=== PATIENT | male | born 1970 | race Caucasian/White ===

== ENCOUNTER 2017-08-24 00:32 | Emergency (ER) | payer OTHER ==
[2017-08-24 00:38] VITALS: BP 123/68; PULSE 77; TEMP 97.7; BMI 25.7
--- NOTE | 2017-08-24 01:07 | PDOC ---
History of Present Illness - General Chief Complaint: Respiratory Stated Complaint: COLD SYMPTOMS,COUGH/RESPIRATORY Time Seen by Provider: 08/24/17 00:40 History Source: Patient - History of Present Illness Initial Comments: 08/24/17 02:12 47-year-old male with a history of asthma and renal colic presents to the emergency department complaining of a greenish productive cough 4 days with rhinorrhea and nasal congestion but without headaches, dizziness, lightheadedness, rhinorrhea, nasal congestion, chest pain, shortness of breath, abdominal pains, urinary symptoms. Past History - Past Medical History Allergies/Adverse Reactions: Allergies Allergy/AdvReac Type Severity Reaction Status Date / Time No Known Allergies Allergy Verified 08/24/17 00:37 Home Medications: Ambulatory Orders Cyclobenzaprine HCl [Flexeril -] 10 mg PO TID #21 tablet 07/13/16 Naproxen [Naprosyn -] 500 mg PO BID PRN #15 tablet 07/13/16 Asthma: Yes Kidney Stones: Yes - Suicide/Smoking/Psychosocial Hx Smoking Status: Yes Smoking History: Current every day smoker Have you smoked in the past 12 months: Yes Number of Cigarettes Smoked Daily: 3 Cigars Per Day: 0 Information on smoking cessation initiated: No Hx Alcohol Use: Yes (WEEKENDS) Drug/Substance Use Hx: No Review of Systems - Review of Systems Able to Perform ROS?: Yes Comments:: 08/24/17 01:41 CONSTITUTIONAL: Absent: fever, chills, diaphoresis, generalized weakness, malaise, loss of appetite HEENT: Absent: rhinorrhea, nasal congestion, throat pain, throat swelling, difficulty swallowing, mouth swelling, ear pain, eye pain, visual Changes CARDIOVASCULAR: Absent: chest pain, loss of consciousness, palpitations, irregular heart rate, peripheral edema RESPIRATORY: Absent: cough, shortness of breath, dyspnea with exertion, orthopnea, wheezing, stridor, hemoptysis GASTROINTESTINAL: Absent: abdominal pain, abdominal distension, nausea, vomiting, diarrhea, constipation, melena, hematochezia GENITOURINARY: Absent: dysuria, frequency, urgency, hesitancy, hematuria, flank pain, genital pain MUSCULOSKELETAL: Absent: myalgia, arthralgia, joint swelling SKIN: Absent: rash, itching, pallor HEMATOLOGIC/IMMUNOLOGIC: Absent: easy bleeding, easy bruising, lymphadenopathy, frequent infections ENDOCRINE: Absent: unexplained weight gain, unexplained weight loss, heat intolerance, cold intolerance NEUROLOGIC: Absent: headache, focal weakness or paresthesias, dizziness, unsteady gait, seizure, mental status changes, bladder or bowel incontinence PSYCHIATRIC: Absent: anxiety, depression, suicidal or homicidal ideation, hallucinations. Is the patient limited Swiss proficient: No *Physical Exam - Vital Signs Last Vital Signs Temp Pulse Resp BP Pulse Ox 97.7 F 77 18 123/68 99 08/24/17 00:34 08/24/17 00:34 08/24/17 00:34 08/24/17 00:34 08/24/17 00:34 - Physical Exam Comments: 08/24/17 01:41 GENERAL: Well developed, well nourished. Awake and alert. No acute distress. HEENT: Normocephalic, atraumatic. PERRLA, EOMI. No conjunctival pallor. Sclera are non- icteric. Moist mucous membranes. Oropharynx is clear. NECK: Supple. Full ROM. No JVD. Carotid pulses 2+ and symmetric, without bruits. No thyromegaly. No lymphadenopathy. CARDIOVASCULAR: Regular rate and rhythm. No murmurs, rubs, or gallops. Distal pulses are 2+ and symmetric. PULMONARY: No evidence of respiratory distress. Lungs clear to auscultation bilaterally. No wheezing, rales or rhonchi. ABDOMINAL: Soft. Non-tender. Non-distended. No rebound or guarding. No organomegaly. Normoactive bowel sounds. MUSCULOSKELETAL Normal range of motion at all joints. No bony deformities or tenderness. No CVA tenderness. EXTREMITIES: No cyanosis. No clubbing. No edema. No calf tenderness. SKIN: Warm and dry. Normal capillary refill. No rashes. No jaundice. NEUROLOGICAL: Alert, awake, appropriate. Cranial nerves 2-12 intact. No deficits to light touch and temperature in face, upper extremities and lower extremities. No motor deficits in the in face, upper extremities and lower extremities. Normoreflexic in the upper and lower extremities. Normal speech. Toes are down- going bilaterally. Gait is normal without ataxia. PSYCHIATRIC: Cooperative. Good eye contact. Appropriate mood and affect. *DC/Admit/Observation/Transfer Diagnosis at time of Disposition: Cough - Discharge Dispostion Disposition: HOME Condition at time of disposition: Stable Admit: No - Patient Instructions Printed Discharge Instructions: DI for Acute Bronchitis Additional Instructions: Medrol Dose pack Over the counter supposrtive care Return to the ER for severe/persistent/worsening symptoms
[2017-08-24] MEDS ORDERED: DEXAMETHASONE SOD PHOSPHATE 10 MG/1 ML VIAL IM ONE (02:19)
[2017-08-24] MEDS ORDERED: predniSONE 20 MG TABLET (UD) PO ONE (02:20)
[2017-08-24] MEDS ORDERED: predniSONE 20 MG TABLET (UD) ONE (02:23)
== END 2017-08-24 02:49 | disposition home or self-care (01) ==
LOC: JER 00:32
DX: J20.9 Acute bronchitis, unspecified (principal)
CPT/HCPCS: 71020-TC; 99281-25

== ENCOUNTER 2018-05-31 21:31 | Emergency (ER) | payer OTHER ==
[2018-05-31 21:50] VITALS: BP 115/60; PULSE 95; TEMP 97.5; BMI 29.2
[2018-05-31] MEDS ORDERED: IBUPROFEN 400 MG TABLET (FP) PO ONE ×2 (22:10)
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
== END 2018-05-31 22:49 | disposition home or self-care (01) ==
LOC: JERFT 21:31
DX: L55.0 Sunburn of first degree (principal); J45.909 Unspecified asthma, uncomplicated; F17.210 Nicotine dependence, cigarettes, uncomplicated
CPT/HCPCS: 99281-25

== ENCOUNTER 2019-11-21 19:51 | Emergency (ER) | payer OTHER ==
[2019-11-21 20:18] VITALS: BP 114/70; PULSE 96; TEMP 98.3; BMI 25.4
[2019-11-21] MEDS ORDERED: diazePAM 5 MG TABLET PO ONE (22:11)
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
[2019-11-21] MEDS ORDERED: diazePAM 5 MG TABLET ONE (22:15)
== END 2019-11-21 22:20 | disposition home or self-care (01) ==
LOC: JERFT 19:51
DX: M62.830 Muscle spasm of back (principal); F17.210 Nicotine dependence, cigarettes, uncomplicated
CPT/HCPCS: 99281-25

== ENCOUNTER 2019-11-22 14:37 | Emergency (ER) | payer SELFPAY ==
[2019-11-22] MEDS ORDERED: KETOROLAC TROMETHAMINE 60 MG/2 ML VIAL IM ONE (14:41)
--- NOTE | 2019-11-22 14:41 | PDOC ---
Rapid Medical Evaluation Time Seen by Provider: 11/22/19 14:40 Medical Evaluation: Allergies Allergy/AdvReac Type Severity Reaction Status Date / Time No Known Allergies Allergy Verified 08/24/17 00:37 11/22/19 14:40 CC: lower back pain PE: lumbar muscle spasm present Orders: toradol Patient will proceed to ED for further evaluation. Discharge Disposition - Diagnosis Low back pain - Referrals - Patient Instructions - Post Discharge Activity
[2019-11-22 14:42] VITALS: BP 110/62; PULSE 70; TEMP 98; BMI 25.4
[2019-11-22] MEDS ORDERED: KETOROLAC TROMETHAMINE 60 MG/2 ML VIAL ONE (14:47)
[2019-11-22] MEDS ORDERED: CYCLOBENZAPRINE HCL 10 MG TABLET (FP) PO ONE (15:11)
--- NOTE | 2019-11-22 15:14 | PDOC ---
History of Present Illness - General Chief Complaint: Back Pain Stated Complaint: BACK PAIN Time Seen by Provider: 11/22/19 14:40 - History of Present Illness Initial Comments: 11/22/19 15:11 49-year-old male presents for evaluation of lower back pain. Seen yesterday he returns to the emergency room with re-exacerbation of symptoms without radicular or systemic symptoms no loss of bowel or bladder function no saddle paresthesias. He is requesting a shot of Toradol which she was not given yesterday. I explained to him he was taking anti-inflammatories yesterday and this is why he was not given Toradol. He assures me that he did not take any anti-inflammatory medications today. Past History - Past Medical History Allergies/Adverse Reactions: Allergies Allergy/AdvReac Type Severity Reaction Status Date / Time No Known Allergies Allergy Verified 11/22/19 14:42 Home Medications: Ambulatory Orders Silver Sulfadiazine 1% Top Cr [Silvadene -] 1 applic TP BID #1 jar 05/31/18 Silver Sulfadiazine 1% Top Cr [Silvadene -] 1 applic TP BID #1 jar 05/31/18 Albuterol Sulfate Inhaler - [Ventolin HFA Inhaler -] 1 puff IH Q6H #90 inhaler 11/21/19 Methocarbamol [Robaxin -] 1,500 mg PO Q8H PRN #30 tablet 11/21/19 Asthma: Yes CVA: No COPD: No Kidney Stones: Yes - Psycho Social/Smoking Cessation Hx Smoking Status: Yes Smoking History: Never smoked Have you smoked in the past 12 months: Yes Number of Cigarettes Smoked Daily: 4 Cigars Per Day: 0 Hx Alcohol Use: No Drug/Substance Use Hx: No Substance Use Type: None Review of Systems - Review of Systems Musculoskeletal: Yes: Back Pain *Physical Exam - Vital Signs Last Vital Signs Temp Pulse Resp BP Pulse Ox 98 F 70 18 110/62 99 11/22/19 14:39 11/22/19 14:39 11/22/19 14:39 11/22/19 14:39 11/22/19 14:39 - Physical Exam 11/22/19 15:12 Lumbar spine skin color and temperature normal range of motion is limited. No midline tenderness. Mild right and left paralumbar musculature spasm and tenderness bilateral thighs and calves soft and nontender neurovascular intact no gross sensorimotor deficits ED Treatment Course - RADIOLOGY Radiology Studies Ordered: Category Date Time Status SPINE-LUMBAR SACRAL [RAD] Stat Radiology 11/22/19 14:44 Taken - Medications Given in the ED: ED Medications Discontinued Medications Generic Name Dose Route Start Last Admin Trade Name Ese PRN Reason Stop Dose Admin Ketorolac Tromethamine 60 mg 11/22/19 14:41 11/22/19 14:53 Toradol Injection - IM 11/22/19 14:42 60 mg ONCE ONE Administration Medical Decision Making - Medical Decision Making 11/22/19 15:13 X-rays of the lumbar sacral spine show straightening of the lumbar lordosis no evidence of fracture trauma mild arthritic changes loss of disc height between L5 and S1 Toradol and Flexeril given in the emergency room follow-up with neurosurgery Discharge - Discharge Information Problems reviewed: Yes Clinical Impression/Diagnosis: Low back pain Condition: Stable Disposition: HOME - Admission No - Follow up/Referral Referrals: Kevin Sadler MD, [facility] [Staff Physician] - - Patient Discharge Instructions Additional Instructions: Continue your medication at home as directed. Do not take any anti- inflammatories for the rest of the day. You were given a long-acting injection of an anti-inflammatory in the emergency room. Return to the emergency room for worsening symptoms and without fail follow-up with neurosurgery in 2 to 3 days for further evaluation and treatment options. Start the anti-inflammatory tomorrow evening at about 6 PM - Post Discharge Activity
[2019-11-22] MEDS ORDERED: CYCLOBENZAPRINE HCL 10 MG TABLET (FP) ONE (15:15)
== END 2019-11-22 15:30 | disposition home or self-care (01) ==
LOC: JERFT 14:37
PROC: 3E0233Z Introduction of Anti-inflammatory into Muscle, Percutaneous Approach (ICD-10-PCS; principal; 2019-11-22)
DX: M62.830 Muscle spasm of back (principal)
CPT/HCPCS: 72100-TC-FY; 99282-25

== ENCOUNTER 2021-08-16 09:21 | Emergency (ER) | payer OTHER ==
[2021-08-16 09:28] VITALS: BP 127/89; TEMP 97.9; BMI 25.7
[2021-08-16] MEDS ORDERED: CYCLOBENZAPRINE HCL 10 MG TABLET (FP) PO ONE (09:55)
[2021-08-16] MEDS ORDERED: CYCLOBENZAPRINE HCL 10 MG TABLET (FP) ONE (09:57)
[2021-08-16 11:09] VITALS: PULSE 88
== END 2021-08-16 10:12 | disposition home or self-care (01) ==
LOC: JER 09:21
DX: M54.5 Low back pain (principal)
CPT/HCPCS: 99283-25

== ENCOUNTER 2021-09-12 23:21 | Emergency (ER) | payer OTHER ==
[2021-09-12 23:47] VITALS: TEMP 98.2; BMI 25.7
[2021-09-13] MEDS ORDERED: methylPREDNISolone NA SUCC 125 MG/2 ML VIAL IVPUSH ONE (00:38)
[2021-09-13] MEDS ORDERED: ALBUTEROL SO4 2.5/IPRATROPIUM 0.5 INH SOL 3 ML VIAL.NEB. NEB SCH (00:45)
[2021-09-13] MEDS ORDERED: methylPREDNISolone NA SUCC 125 MG/2 ML VIAL ONE (01:16)
[2021-09-13] MEDS ORDERED: ALBUTEROL SO4 2.5/IPRATROPIUM 0.5 INH SOL 3 ML VIAL.NEB. NEB ONE (01:21)
[2021-09-13 01:22] LABS: BASO % 0.5 % (0-2.0); EOS % 2.7 % (0-4.5); HEMATOCRIT 42.7 % (35.4-49); HEMOGLOBIN 14.2 GM/dL (11.7-16.9); LYMPH % 19.1 % (8-40); MCH 29.3 pg (25.7-33.7); MCHC 33.2 g/dl (32.0-35.9); MEAN CELL VOLUME 88.3 fl (80-96); MEAN PLT VOLUME 8.7 fl (7.5-11.1); MONO % 10.5 % (3.8-10.2); NEUT % 67.2 % (42.8-82.8); PLATELET COUNT 162 10^3/uL (134-434); RBC 4.84 M/mm3 (4.00-5.60); RDW 13.5 % (11.9-15.9); WHITE BLOOD COUNT 6.7 K/mm3 (4.0-10.0)
[2021-09-13 01:48] LABS: CHLORIDE 106 mmol/L (98-107); SODIUM 141 mmol/L (136-145)
[2021-09-13 01:50] LABS: CALCIUM 8.5 mg/dL (8.5-10.1)
[2021-09-13 01:51] LABS: ALBUMIN 3.2 g/dl (3.4-5.0); ANION GAP 8 MMOL/L (8-16); CO2 27 mmol/L (21-32); GLUCOSE,RANDOM 99 mg/dL (74-106); MAGNESIUM 1.8 mg/dL (1.8-2.4)
[2021-09-13 01:54] LABS: CREATININE 0.9 mg/dL (0.55-1.3); PHOSPHOROUS 3.8 mg/dL (2.5-4.9); SGOT/AST 32 U/L (15-37); SGPT/ALT 38 U/L (13-61)
[2021-09-13 01:56] LABS: BILIRUBIN,TOTAL 0.2 mg/dL (0.2-1)
[2021-09-13 01:57] LABS: ALK PHOS 64 U/L (45-117); TOT PROT 6.7 g/dl (6.4-8.2)
[2021-09-13] MEDS ORDERED: ALBUTEROL SO4 HFA INHALER IH ONE ×2 (01:59→02:26)
[2021-09-13 02:00] LABS: N-TERMINAL BNP 75.4 pg/ml (5-125)
[2021-09-13 02:40] VITALS: BP 122/74; PULSE 86
== END 2021-09-13 02:41 | disposition home or self-care (01) ==
LOC: JER 23:21
PROC: 3E0F7GC Introduction of Other Therapeutic Substance into Respiratory Tract, Via Natural or Artificial Opening (ICD-10-PCS; principal; 2021-09-12)
PROC: 3E033GC Introduction of Other Therapeutic Substance into Peripheral Vein, Percutaneous Approach (ICD-10-PCS; 2021-09-12)
DX: R06.02 Shortness of breath (principal)
CPT/HCPCS: 36415; 71046-TC-FY; 80053; 82550; 82553; 83735; 83880; 84100; 84484; 85025; 93005; 93010; 99285-25; C9803; U0003; U0005

== ENCOUNTER 2022-09-13 18:15 | Emergency (ER) | payer OTHER ==
[2022-09-13 18:28] VITALS: BP 119/68; PULSE 78; RESP 18; TEMP 98.3; BMI 28.8
[2022-09-13] MEDS ORDERED: KETOROLAC TROMETHAMINE 30 MG/1 ML VIAL IM ONE (18:46)
[2022-09-13] MEDS ORDERED: predniSONE 20 MG TABLET (UD) PO ONE (18:47)
[2022-09-13] MEDS ORDERED: ALBUTEROL SO4 2.5/IPRATROPIUM 0.5 INH SOL 3 ML VIAL.NEB. NEB ONE ×2 (18:48→19:24)
[2022-09-13] MEDS ORDERED: predniSONE 20 MG TABLET (UD) ONE (19:21)
[2022-09-13] MEDS ORDERED: KETOROLAC TROMETHAMINE 30 MG/1 ML VIAL ONE (19:21)
== END 2022-09-13 20:49 | disposition home or self-care (01) ==
LOC: JER 18:15
PROC: 3E0F7GC Introduction of Other Therapeutic Substance into Respiratory Tract, Via Natural or Artificial Opening (ICD-10-PCS; principal; 2022-09-13)
PROC: 3E0233Z Introduction of Anti-inflammatory into Muscle, Percutaneous Approach (ICD-10-PCS; 2022-09-13)
DX: U07.1 COVID-19 (principal)
CPT/HCPCS: 0241U-QW; 71046-TC-FY; 99284-25